=== PATIENT | male | born 1955 | race Caucasian/White ===

== ENCOUNTER 2021-11-16 18:31 | Emergency (ER) | payer MEDICARE, SELFPAY ==
[2021-11-16 18:46] VITALS: BP 181/118; PULSE 80; RESP 18; TEMP 36.8; O2SAT 96; BMI 27.3
--- NOTE | 2021-11-16 18:50 | ED_ITS ---
HPI - Head Injury General: Chief complaint: Head Injury Stated complaint: Hit head after brain surgery yesterday Time Seen by Provider: 11/16/21 18:50 History of Present Illness: A 66-year-old male patient comes in today for concern of a fall and injury to the right head. Patient had recently had a cranial procedure to remove a piece of hardware from a previous procedure due to a traumatic brain injury. Today patient had bent down to help with some groceries when he lost his balance causing him to fall into the door jam of a car. The spouse noted some mild swelling to the right facial cheek which is the site of the head in which the procedure was performed. Patient denied any loss of consciousness or significant change in pain. Patient is alert and oriented. Associated symptoms: Deny nausea or vomiting Review of Systems General: Reports: 10 or more systems reviewed and unremarkable except in HPI and below Const: Denies: fever(s) Card: Denies: chest pain Resp: Denies: dyspnea GI: Denies: nausea or vomiting Skin/Breast: Denies: erythema Neuro: Denies: headache(s) Physical Exam Const: COMMON NORMALS: no acute distress HENMT: COMMON NORMALS: TM's normal bilaterally and Normal external nose present HEAD & SCALP: other (Healing postsurgical wounds, stable dressing) FACE & SINUS: Facial tenderness on exam of face and sinuses (Mild right facial cheek tenderness with minimal swelling, no crepitus) NOSE: Normal external nose present TYMPANIC MEMBRANE: TM's normal bilaterally MOUTH: Normal oral and palatal mucosa present THROAT: posterior oropharynx normal Neck/C-Spine: COMMON NORMALS: full ROM Resp: COMMON NORMALS: normal respiratory effort and clear to auscultation bilaterally AUSCULTATION: clear to auscultation bilaterally Cardio: COMMON NORMALS: regular rate and regular rhythm RATE: regular rate RHYTHM: regular rhythm Extremity: COMMON NORMALS: normal to inspection Skin: WOUNDS: Yes surgical site (Right scalp, healing well) Course Vital Signs: Vital signs: Vital Signs Temperature 98.2 F 11/16/21 18:46 Pulse Rate 65 11/16/21 19:43 Respiratory Rate 15 11/16/21 19:43 Blood Pressure 178/113 11/16/21 19:43 Pulse Oximetry 97 11/16/21 19:43 MDM - Head Injury Medcial Decision Making 66-year-old male patient had a recent cranial procedure for removal of hardware from a previous traumatic brain injury. Today patient was helping carrying groceries when he bent down to get a bag and lost his balance causing him to fall into the door jam of the car. Patient had some mild swelling to the right facial cheek without any signs of abrasion or ecchymosis. Neurologic exam indicated no focal deficits. Patient was alert and oriented. Vital signs did note some elevation in blood pressure although patient states that when he is in the hospital his blood pressure does run high and he was worried about his fall. Differential diagnosis includes intracranial bleeding, fracture, contusion. CT of the head indicated no acute injury. Reviewed exam with patient and family member for recommendations for monitoring and follow-up. They reported understanding agreed to plan. Lab Data Radiology Impressions Head CT 11/16/21 18:54 IMPRESSION: 1. No acute intracranial abnormality. 2. Sequela of recent craniotomy with expected pneumocephalus anterior to the right frontal lobe. Focal encephalomalacia noted at the right parietal, occipital, and temporal lobes. Discharge Plan Discharge Patient Disposition: Home Clinical Impression: Closed head injury Qualifiers: Encounter type: initial encounter Qualified Code(s): S09.90XA - Unspecified injury of head, initial encounter Condition: Stable Prescriptions: No Action hydrocodone-acetaminophen 5-325 mg tablet 1 tab PO Q4H 0RF tamsulosin 0.4 mg capsule 0.4 mg PO DAILY 0RF dutasteride 0.5 mg capsule 0.5 mg PO DAILY 0RF Discharge Orders: Discharge ED (Routine); Ordered 11/16/21 Ordered By: Varghese Bocanegra Discharge Diet: Usual diet Discharge Activity: Increase activity as tolerated Patient Instructions: Head Injury (ED), Opioid Safety Activity Restrictions/Additional Instructions: Continue with routine care. Follow-up with primary care as needed. Follow-up with surgeon for further instructions. Return to ER for worsening symptoms or new concerns. Coding Level of Care Code ED Medicare Biller for Clary Portillo Exam Detailed
--- NOTE | 2021-11-16 18:54 | CTR_ITS ---
PROCEDURE INFORMATION: Exam: CT Head Without Contrast Exam date and time: 11/16/2021 7:20 PM Age: 66 years old Clinical indication: Injury or trauma; Other: Hit head on car door while getting groceries; Blunt trauma (contusions or hematomas); Other: Swelling of recent surgery site; Prior surgery; Surgery date: Post-operative (0-2 days); Surgery type: Cranial procedure to remove a piece of hardware. Previous procedure due to a traumatic brain injury. ; Additional info: Hit head, recent cranial procedure TECHNIQUE: Imaging protocol: Computed tomography of the head without contrast. Radiation optimization: All CT scans at this facility use at least one of these dose optimization techniques: automated exposure control; mA and/or kV adjustment per patient size (includes targeted exams where dose is matched to clinical indication); or iterative reconstruction. COMPARISON: No relevant prior studies available. RADIATION DOSE METRICS: Total DLP (mGy-cm): 867.33 FINDINGS: Brain: No hemorrhage. Pneumocephalus anterior to the right frontal lobe. Focal encephalomalacia at the right parietal, occipital, and temporal lobes. Cerebral ventricles: No ventriculomegaly. Ex vacuo dilation of the right atria and temporal horn of the right lateral ventricle. Paranasal sinuses: Opacified right maxillary and left frontal sinuses. Mastoid air cells: Visualized mastoid air cells are well aerated. Bones/joints: Right frontal parietal temporal craniotomy changes noted. No acute fracture. Soft tissues: Unremarkable. CT/CT head wo con* [id number] IMPRESSION: 1. No acute intracranial abnormality. 2. Sequela of recent craniotomy with expected pneumocephalus anterior to the right frontal lobe. Focal encephalomalacia noted at the right parietal, occipital, and temporal lobes.
[2021-11-16 19:43] VITALS: BP 178/113; PULSE 65; RESP 15; O2SAT 97
[2021-11-16 20:00] VITALS: BP 171/109; PULSE 68; RESP 17; O2SAT 99
== END 2021-11-16 20:02 | disposition home or self-care (01) ==
PROVIDERS: Emergency Provider Nurse Practitioner Family
DX: S09.90XA Unspecified injury of head, initial encounter (principal); W01.0XXA Fall on same level from slipping, tripping and stumbling without subsequent striking against object, initial encounter
CPT/HCPCS: 70450; 99282

== ENCOUNTER 2023-01-14 15:50 | Emergency (ER) | payer MEDICARE, SELFPAY ==
[2023-01-14 15:53] VITALS: BP 171/98; PULSE 62; RESP 15; TEMP 36.7; O2SAT 100; BMI 27.3
--- NOTE | 2023-01-14 16:15 | PC.NURSE ---
Pt on bedside monitoring and evaluation advisor
--- NOTE | 2023-01-14 16:16 | ED_ITS ---
HPI - Chest Pain General: Chief Complaint: Chest Pain Stated Complaint: CHEST PAIN Time Seen by Provider: 01/14/23 15:58 History of Present Illness: 68-year-old male presents emergency room via EMS with chest pain while cutting grass. Patient describes pain as sharp sensation and heaviness with severity of 7 out of 10 prior to coming to emergency room. Patient further reviews that she has had this pain off and on for the past few months. Upon present emergency room patient denies any chest pain at this time and demanding for immediate stress test. Associated symptoms: Deny dyspnea, palpitations or syncope Review of Systems General: Reports: 10 or more systems reviewed and unremarkable except in HPI and below Card: Reports: chest pain; Denies: palpitations, irregular heart rhythm, edema, swelling of feet/ankles, lightheadedness, syncope or pre-syncope Resp: Denies: dyspnea, productive cough, non-productive cough, wheezing, pain on inspiration, change in phlegm color or chest congestion Neuro: Denies: headache(s), numbness in extremities or weakness in extremities Physical Exam Const: COMMON NORMALS: no acute distress, average body habitus, patient orien matthew x3, no limitations, healthy appearing, alert and well nourished Neck/C-Spine: COMMON NORMALS: full ROM, no lymphadenopathy, supple, no meninge al signs, no JVD, Thyroid normal and No carotid bruits THYROID: Thyroid normal Chest: COMMONS NORMALS: normal inspection of the chest, normal palpation of entire chest wall, normal inspection of the breasts and normal palpation of the breasts Breast/axilla inspection: Yes normal inspection of the breasts BREAST/AXILLA PALPATION: Yes normal palpation of the breasts Resp: COMMON NORMALS: normal respiratory effort, No retractions, No use of accessory muscles, clear to auscultation bilaterally and percussion normal AUSCULTATION: clear to auscultation bilaterally PERCUSSION: percussion normal Cardio: COMMON NORMALS: no JVD, regular rate, regular rhythm, S1 normal heart sound present, S2 normal heart sound present, No gallops present (Cardio), No clicks present (Cardio), No murmurs present (Cardio), No rub (Cardio) and Peripheral pulses 2+ throughout RATE: regular rate RHYTHM: regular rhythm HEART SOUNDS: S1 normal heart sound present and S2 normal heart sound present PERIPHERAL PULSES: Peripheral pulses 2+ throughout GI: COMMON NORMALS: Normal to inspection, nondistended, normoactive bowel sounds present, Soft to palpation, non-tender, No hepatosplenomegaly present, no masses and no bruits PALPATION: Yes Soft to palpation and Yes No hepatosplenomegaly present Extremity: COMMON NORMALS: normal to inspection, full ROM, capillary refill normal, no joint enlargement, no clubbing, cyanosis or edema, no calf tenderness and no pedal edema Neuro: COMMON NORMALS: patient oriented x3 SENSORIUM/ORIENTATION: Yes alert MENINGEAL SIGNS: Yes no meningeal signs Course ED course: Labs were ordered EKG was done and patient declined further testing and leave AGAINST MEDICAL ADVICE. The risk of leaving against medical was thoroughly discussed. Vital Signs: Vital signs: Vital Signs Temperature 98.1 F 01/14/23 15:53 Pulse Rate 62 01/14/23 15:53 Respiratory Rate 15 01/14/23 15:53 Blood Pressure 171/98 01/14/23 15:53 Pulse Oximetry 100 01/14/23 15:53 Oxygen Delivery Me thod Room Air 01/14/23 15:53 MDM - Chest Pain Medical Decision Making EKG reviewed and discussed with patient Medical Records I reviewed the patient's medical records. Lab Data I reviewed the patient's lab results. EKG Data EKG 1: Interpretation: Sinus bradycardia with rate of 59no ST changes MD interval 146 QTc [address] elevation or ST depression Discharge Plan Discharge Patient Disposition: Left Against Medical Advice Clinical Impression: Chest pain Condition: Stable Prescriptions: No Action hydrocodone-acetaminophen 5-325 mg tablet 1 tab PO Q4H tamsulosin 0.4 mg capsule 0.4 mg PO DAILY dutasteride 0.5 mg capsule 0.5 mg PO DAILY Discharge Diet: Advance as tolerated Coding Level of Care Code ED Scientific Software Engineer for Clary Portillo
--- NOTE | 2023-01-14 16:25 | PC.NURSE ---
Pt refusing blood draw, states he is feeling better and wants to go home. Dr Ramírez in to talk with pt about risks of leaving, pt verbalized understanding. Pt states he will call and get a stress test set up but does not want to stay for other testing today. AMA paper signed by pt after physician talked to him about the risks of leaving and benefits of additional testing.
--- NOTE | 2023-01-14 16:28 | ECG_ITS ---
[facility] Test Date: 2023-01-14 Pat Name: Hammad Contreras Department: Room: Gender: Male Construction Safety Manager: : 1955 Requested By: Robinson Burns Order Number: [id number] Christianne MD: Viktor Morales M.D. Measurements Intervals [place] Rate: 58 P: 24 UT: 146 QRS: 18 QRSD: 102 T: 76 QT: 407 QTc: 400 Interpretive Statements SINUS BRADYCARDIA NONSPECIFIC T-WAVE ABNORMALITY No previous ECG available for comparison Electronically Signed On 01-16-2023 8:00:59 CDT by Viktor Morales M.D. [id number]
--- NOTE | 2023-02-02 15:02 | DCPLANNER ---
late entry - patient called due to no primary care physician - no answer at this time.
== END 2023-01-14 16:39 | disposition left against medical advice (07) ==
PROVIDERS: Emergency Provider Family Medicine
DX: R07.9 Chest pain, unspecified (principal); Z53.21 Procedure and treatment not carried out due to patient leaving prior to being seen by health care provider
CPT/HCPCS: 93005; 99283

== ENCOUNTER 2023-01-14 17:22 | Emergency (ER) | payer MEDICARE, SELFPAY ==
[2023-01-14 17:34] VITALS: BP 159/99; PULSE 68; RESP 14; TEMP 36.7; O2SAT 99; BMI 27.3
--- NOTE | 2023-02-02 15:06 | DCPLANNER ---
late entry - patient called due to no primary care physician - no answer at this time.
== END 2023-01-14 18:17 | disposition left against medical advice (07) ==
PROVIDERS: Emergency Provider Family Medicine
DX: Z53.21 Procedure and treatment not carried out due to patient leaving prior to being seen by health care provider (principal)

== ENCOUNTER 2023-02-07 11:43 | Outpatient (CLI) | payer MEDICARE, SELFPAY ==
[2023-02-07 12:18] VITALS: BMI 27.3
--- NOTE | 2023-02-07 12:23 | ECG_ITS ---
[facility] Test Date: 2023-02-07 Pat Name: Hammad Contreras Department: Room: Gender: Male Analytics Analyst: : 1955 Requested By: Oskar Vaca Order Number: [id number] Faust MD: Zulay Dominguez M.D. Interpretive Statements NAME OF STUDY: TREADMILL STRESS TEST INDICATION: Chest Pain Baseline blood pressure of 148/85 mm Hg, heart rate 85 beats per minute and oxygen saturation of 95%. EKG showed sinus rhythm, normal axis with normal ST-Ts. ??? The patient exercised for 3 minutes and 51 seconds on a [standard Campbell protocol]. Patient attained a maximum heart rate of 124 beats per minute( 80 % of the maximum predicted heart rate) with a blood pressure at the peak exercise of 185/101 mm Hg and oxygen saturation of 91%. The EKG at the peak exercise revealed sinus tachycardia with 2 mm horizontal to upsloping ST depression in infero-lateral leads. Patient had chest pain and SOB at peak exercise that resolved in recovery. No significant arrhythmis with the exercise. During the recovery phase, there were no new changes. ??? Blood pressure at the end of the recovery phase was 156/92 mm Hg with a heart rate of 81 beats per minute and oxygen saturation of 97%. ??? CONCLUSION: 1. Positive EKG response to treadmill exercise with submaximal stress. Patient developed 2 mm horizontal to upsloping ST depression in infero-lateral leads at 80% MPHR at peak exercise. 2. No exercise-induced chest pain or cardiac arrhythmia. 3. Decreased exercise tolerance, attained a maximum of 7 METs. 4. Baseline hypertension with normal response to exercise. Electronically Signed On 02-11-2023 9:15:33 CDT by Zulay Dominguez M.D. [id number]
[2023-02-07 12:57] VITALS: BP 154/69; PULSE 82
== END 2023-02-07 11:44 | disposition home or self-care (01) ==
PROVIDERS: PCP Electrodiagnostic Medicine; Visit Provider Electrodiagnostic Medicine
DX: R07.9 Chest pain, unspecified (principal); I10 Essential (primary) hypertension
CPT/HCPCS: 93017

== ENCOUNTER → 2023-02-22 14:37 | Outpatient (BNVA) | payer MEDICARE, SELFPAY | PROVIDERS: PCP Electrodiagnostic Medicine; Visit Provider Internal Medicine | DX: R07.9 Chest pain, unspecified (principal); R94.39 Abnormal result of other cardiovascular function study | CPT/HCPCS: 93005; 99204 ==

== ENCOUNTER 2023-03-02 15:25 | Outpatient (CLI) | payer MEDICARE, SELFPAY ==
[2023-03-02 16:11] LABS: Basophils # 0.1 10^3/uL (0.0-0.1); Basophils % 0.8 %; Eosinophils # 0.6 10^3/uL (0.0-0.8); Eosinophils % 5.5 %; Hematocrit 42.8 % (42.0-52.0); Hemoglobin 14.3 g/dL (11.7-16.6); Lymphocytes # 2.5 10^3/uL (0.8-4.8); Lymphocytes % 22.7 %; Mean Corpuscular HGB Conc 33.4 g/dL (30.0-36.0); Mean Corpuscular Volume 95.7 fl (80-94); Mean Platelet Volume 9.3 fL (7.4-10.4); Monocytes % 8.7 %; Neutrophils # 6.73 10^3/uL (1.8-7.7); Neutrophils % 61.7 %; Nucleated Red Blood Cells % 0 %; Platelet Count 356 10^3/cmm (130-400); Red Blood Count 4.47 10^6/uL (4.1-5.3); Red Cell Distribution Width 12.5 % (12.1-15.1); White Blood Count 10.9 10^3/uL (4.0-10.0)
[2023-03-02 16:24] LABS: INR 0.96 (0.83-1.21); Prothrombin Time (Patient) 13.1 Seconds (12.0-15.1)
[2023-03-02 17:02] LABS: Blood Urea Nitrogen 13 mg/dL (8-23); Carbon Dioxide 20 mmol/L (22-29); Chloride 102 mmol/L (98-107); Glomerular Filtration Rate 74.8 mL/min (90-130); Glucose 108 mg/dL (65-115); Osmolality Calculated 287 mOsm/kg (285-295); Sodium 138 mmol/L (136-145)
== END 2023-03-02 15:26 | disposition home or self-care (01) ==
PROVIDERS: PCP Electrodiagnostic Medicine; Visit Provider Internal Medicine
DX: R07.9 Chest pain, unspecified (principal)
CPT/HCPCS: 36415; 80048; 85025; 85610

== ENCOUNTER 2023-03-09 05:56 | Outpatient (CLI) | payer MEDICARE, SELFPAY ==
[2023-03-09 06:00] VITALS: BP 168/100; PULSE 80; RESP 16; TEMP 36.7; O2SAT 96; BMI 27.3
--- NOTE | 2023-03-09 06:00 | XACV_ITS ---
Exam Room: 2 Ht: 173 cm Wt: 82 kg BSA: 2.00 m2 Gender: Male : 1955 Any Known Allergies: No known allergies Exam Priority: Routine Procedure(s): Procedure Description: Diagnostic procedure Procedure Description: Left Heart Catheterization Procedure Description: Left ventriculography Procedure Description: Coronary Angiography Diagnostic Cath Status: Elective Diagnostic Findings * INDICATION: Worsening angina/ abnormal stress test. * Left Anterior Descending has no disease. * Circumflex has no disease. * Left Main: critical 95% stenosis, CARLIN: 3 flow. * Mid Right Coronary Artery: moderate 50% stenosis, CARLIN: 3 flow. * Coronary angiography shows right dominance. Conclusions 1. Critical distal left main artery stenosis.. 2. Normal left ventricular systolic function. Ejection fraction of 50%. Recommendations * Referral to CT surgery team for CABG evaluation. * Continue aspirin and statin therapy. * Outpatient cardiology follow up in 7-10 days. Interventional RX Recommendation: CABG Diagnostic RX Recommendation: CABG Ventriculography Ejection Fraction: 50.0 % Pressures Phase:Rest AO : 163 / 96 ( 121 ) @ 8:52:00 AM 167 / 80 ( 114 ) @ 9:02:00 AM 167 / 80 ( 114 ) @ 9:02:00 AM LV : 170 / -9 / 13 @ 9:01:00 AM 171 / -8 / 17 @ 9:02:00 AM 170 / -8 / 16 @ 9:02:00 AM Valves Phase:DefaultPhase AV : 3.0 @ 8:17:47 AM 3.0 @ 8:17:47 AM AV Mean Gradient: 7.0 @ 8:17:47 AM 7.0 @ 8:17:47 AM Clinical Evaluation EBL: 5mL-10mL Procedural Details Procedure Consent Obtained. Admit Source: Out Patient. Pre-Procedure Time Out. Identified patient by full name and date of as verbalized by the patient/guarantor. Does the consent match the physician's order: Yes. Accurate & Complete Informed Consent: Yes. Inpatient/Outpatient History & Physical on Chart: Yes. If H&P is completed, is and addenduem needed: No; If yes, is the addendum complete: N/A. Visualize and Verify Site with Patient/Guarantor: N/A. Relevant Radiology Images available: Yes. The risks, benefits, and alternatives of sedation and/or procedure were discussed by physician. The patient agrees to continue. Procedure started. [facility] Clinical Fraility Score: 3: Managing Well. Inside Sales Administrator Indications: Worsening Angina. Chest Pain Symptom Assessment: Typical Angina Symptoms. Correct patient, site and procedure confirmed by cath team. Current diagnosis: Chest Pain, Abnormal stress test. PERRLA. Strong, equal hand wet washer machine bilaterally. Lungs clear x 5 lobes. IV Site on Arrival: 20 gauge in the right anticubital. IV Fluids: 0.9% NaCl at 75ml/hr. 0 mL infused prior to wastewater analyst lab analyst. Pre Procedural Pulses: bilateral radial was 2+. Pre Procedural Pulses: bilateral posterior tibial was Doppled. Pre Procedural Pulses: bilateral dorsalis pedis was Doppled. Oxygen started at 2liters/min via nasal canula. right radial was prepped with chloroprep then draped in the usual sterile fashion. right groin was prepped with chloroprep then draped in the usual sterile fashion. Physician notified. Baseline sample Acquired. HR: 71 BPM. Physician arrived. Physician scrubbed in. Immediate Pre-Procedure Time Out. Correct Patient: Yes; Correct Procedure: Yes; Correct Site: Yes; Correct Patient Position: Yes; Correct Supplies: No; Dried Flammable Prep: Yes; Blood Products Available: No;. Lidocaine 1% infiltrated to the right radial. An attempt to gain access to the right radial artery was unsuccessful. Manual pressure was held as needed to stop the bleeding. Arterial access obtained. Access needle and wire out. Holding manual pressure. Lidocaine 1% infiltrated to the right groin. Arterial access obtained with micropuncture set. Low stick, needle and wire out. Holding manual pressure. Arterial access obtained with micropuncture set. A 5 togolese JL4 catheter in over exchange wire. Marcia Tracee, RN was relieved by Carl Gomez RN, [facility] as monitoring person. Multiple views taken of left coronary artery. Catheter removed over the exchange wire. A 5 togolese JR4 catheter in over wire. Multiple views taken of right coronary artery. Catheter removed over the exchange wire. A 5 togolese Angled Pig catheter in over wire. EDP Sample taken: LV 170/-10,13; HR: 71 BPM; SpO2: 100%. LV gram performed in [place] @ 10 mL/second for a total of 30 mL. Patient EF: Normal. EDP Sample taken: LV 171/-9,17; HR: 74 BPM; SpO2: 99%. Pullback taken: LV 170/-9,16; AO 167/80(114); Mean: 7mmHg, Peak to Peak: 3mmHg, SEP: 19sec/min; HR: 73 BPM; SpO2: 100%. Catheter removed over the exchange wire. Physician review of films then scrubbed out. A Suture was successful obtaining hemostatsis at the Right Femoral artery insertion site. Sheath(s) sutured into position with 2-0 silk and sterile 4x4's and Op-site applied over the site. No oozing or signs and symptoms of hematoma noted. Arterial sheath flushed and connected to tranducer and pressure bag with heparinized saline. Family updated by . Post Procedure: Pulses reassessed and unchanged. PERRLA. Strong, equal hand wet washer machine bilaterally. No VTE prophylaxis required. MEDICATION WASTE: Lidocaine- 2 ml. Nitro 49.8 mg. Heparin- 4000 units. Fentanyl- 50 mcg. Post-op diagnosis: Severe distal left main stenosis. Complications: None. Estimated blood loss: 5mL-10mL. Responsiveness - Normal response to verbal stimuli; alert and oriented, PERRLA. Airway - Unaffected, no intervention required; spontaneous ventilation. Circulation: W/N/L, pulses unchanged. Nausea/Vomiting: No. Procedure completed. Patient transferred by bed to CPRU. Vital chart was stopped. Total IV fluids: 32 mL. Fluoro: 3:06. Contrast type used: Omnipaque 300 mg/mL, 150 mL bottle. [id number]. Access Site Site: Right Femoral artery Sheath Size: 6 Fr Hemostasis Method: Suture Hemostasis Success: Successful Procedure Medications Start: 7:35 AM Stop: 7:35 AM Medication: Versed Amount: 1 mg Route: I.V. Start: 7:36 AM Stop: 7:36 AM Medication: Fentanyl Amount: 50 mcg Route: I.V. Start: 7:43 AM Stop: 7:43 AM Medication: Nitrogylcerin Amount: 200 mcg Route: I.A. Start: 7:43 AM Stop: 7:43 AM Medication: Versed Amount: 1 mg Route: I.V. I, the attending physician, have reviewed and verified all procedure medications. Yes, all medications given per verbal order History/Risk Factors Hypertension: No Dyslipidemia: No Peripheral Arterial Disease (PAD): No Myocardial Infarction (SD): No Obesity: No Renal Disease: No Tobacco Use: Former Prior Interventions PCI: No CABG: No Valve Surgery: No Report Signatures Finalized by Viktor Morales MD on 03/13/2023 05:44 PM
[2023-03-09] MEDS: aspirin 325 mg Tablet PO (06:45)
[2023-03-09] MEDS: diphenhydrAMINE 50 mg Capsule PO (06:45)
--- NOTE | 2023-03-09 07:33 | P.HPUD_ITS ---
Surgery/Procedure H&P Update DATE OF PROCEDURE: March 09, 2023 DATE H&P PERFORMED: 02/22/23 H&P UPDATE INFORMATION: I have reviewed H&P completed within last 30 days, I have examined patient prior to procedure and No changes to prior documentation PREOP DIAGNOSIS: Worsening angina/ abnormal stress test PRIMARY INDICATION FOR PROCEDURE: Worsening angina/ abnormal stress test PLANNED PROCEDURE: Operation Date: 03/09/23 07:00 Proposed Procedures p [facility] 80019,R94.39(Left) - Viktor Morales M.D Possible percutaneous coronary intervention PATIENT REASSESSED PRIOR TO SEDATION, WITH NO CHANGE NOTED: Yes PHYSICAL EXAM: alert, oriented x 3, clear to auscultation bilaterally and regular rate & rhythm AIRWAY EVAL/ANESTHESIA PLAN: normal airway, ASA III, Local Anesthesia, Risks, benefits & alternatives of sedation and/or procedure discussed and Patient agrees to continue as planned ADDITIONAL INFORMATION: Moderate sedation
[2023-03-09 08:15] VITALS: BP 159/98; PULSE 68; RESP 16; O2SAT 96
--- NOTE | 2023-03-09 08:15 | PC.NURSE ---
around 815 cpru nurse received pt from laboratory mechanical technician post diagnostic [facility]. pt alert and oriented x3. pt complains of no pain. right wrist with tr band with distal pulse palpable. no bruising or hematoma. Right femoral site connected to pressure bag. no bruising or hematoma noted. pt educated on restrictions of right wrist and right leg. pt stated understanding. pt to be educated throughout recovery. plan to recover in cpru for 30 mins and then transferred to c[facility].
[2023-03-09 08:30] VITALS: BP 157/89; PULSE 66; RESP 17; O2SAT 96
[2023-03-09 08:45] VITALS: BP 129/80; PULSE 66; RESP 18; O2SAT 96
[2023-03-09 08:59] VITALS: BP 129/80; PULSE 69; RESP 18; O2SAT 96
--- NOTE | 2023-03-09 10:49 | PC.NURSE ---
Patient arrived via bed. Sheath and pressure bag in place. TR band in place. No hematoma or bleeding. Nurse will continue to monitor.
--- NOTE | 2023-03-09 10:50 | PC.NURSE ---
Sheath pulled uneventfully. Dressing in place, no drainage noted. Nurse will monitor.
[2023-03-09 11:12] VITALS: BP 141/87; PULSE 70; RESP 20; TEMP 36.9; O2SAT 96
--- NOTE | 2023-03-09 13:41 | PC.NURSE ---
TR band removed, no hematoma or bleeding. Dressing applied. Nurse will continue to monitor
--- NOTE | 2023-03-09 16:17 | PC.NURSE ---
Discharge Note Patient discharged to home via POV accompanied by family. Discharge instructions reviewed with patient and/or electroplating sales representative. Mobile pharmacy medications and/or prescriptions provided. Belongings/home medications returned.
== END 2023-03-09 16:48 | disposition home or self-care (01) ==
LOC: CCL 06:02 → CSU 09:48
PROVIDERS: PCP Electrodiagnostic Medicine; Visit Provider Internal Medicine
DX: R94.39 Abnormal result of other cardiovascular function study (principal); Z87.891 Personal history of nicotine dependence; I20.9 Angina pectoris, unspecified
CPT/HCPCS: 36415; 93458; 96361; 96365; 99152; 99153; C1769; C1887; C1894; J1644; J2250; J3010; J3490; J7030; Q0163; Q9967

== ENCOUNTER 2023-03-23 06:26 | Outpatient (CLI) | payer MEDICARE, MEDICAID, SELFPAY ==
--- NOTE | 2023-03-23 | USCV_ITS ---
Hammad Contreras Age: 68 Gender: M : 1955 Exam Date: 03/23/2023 06:46 Ordering Phys: Luis Antonio Chang MD Technologist: SHANNEN Exam Location: [facility] – [place] Indication: UNSTABLE ANGINA, CAD BP: 140 / 90 HR: 78 Rhythm: Sinus Technical Quality: Adequate MEASUREMENTS (Male / Female) Normal Values 2D ECHO LVOT Diameter 2.0 cm LV Ejection Fraction MOD 2C 49.6 % LV Ejection Fraction 2C AL 50.6 % LA Diameter 2.8 cm LA Width 3.2 cm LA Height 3.5 cm RA Width 2.6 cm RA Height 3.8 cm Aorta at Sinotubular Diameter 2.9 cm IVC Diameter 1.4 cm M-MODE Aortic Annulus Diameter 3.4 cm LA Ao Ratio MM 0.8 MV E Point Septal Separation 0.4 cm DOPPLER AV Peak Velocity 112.0 cm/s LVOT Peak Velocity 123.0 cm/s AV Area Cont Eq vti 3.5 cm squared AV Area Cont Eq pk 3.4 cm squared MV Peak Velocity 83.0 cm/s MV Area PHT 3.1 cm squared Mitral E to A Ratio 0.7 MV E' Velocity 38.0 cm/s Mitral E to MV E' Ratio 10.3 Mitral E to LV E' Lateral Ratio 9.4 Mitral E to LV E' Septal Ratio 11.3 TR Peak Velocity 239.2 cm/s TR Peak Gradient 22.9 mmHg TR Mean Velocity 191.5 cm/s TR Mean Gradient 15.3 mmHg TR Velocity Time Integral 59.1 cm TV Peak E Velocity 58.0 cm/s Right Atrial Pressure 3.0 mmHg Pulmonary Artery Systolic Pressu 25.9 mmHg PV Peak Velocity 101.0 cm/s RV Acceleration Time 0.1 s RV Ejection Time 0.3 s RV AcT/ET 0.3 FINDINGS Left Ventricle Left ventricle is normal in size. LV systolic function is normal with EF of 50 to 55%. No regional wall motion abnormalities are seen. Grade 1 diastolic dysfunction Right Ventricle Normal in size and function Right Atrium Normal in size Left Atrium Normal in size Mitral Valve Structurally normal mitral valve. Mild mitral regurgitation. Aortic Valve Structurally normal aortic valve. No significant stenosis or regurgitation. Tricuspid Valve Mild tricuspid regurgitation. Pulmonary artery systolic pressure is normal. Pulmonic Valve Not well visualized. Mild pulmonic regurgitation. Pericardium Normal Aorta Normal in size IVC Appears to be normal CONCLUSIONS LV systolic function is normal with EF of 50 to 55%. Grade 1 diastolic dysfunction. Mild mitral regurgitation. Mild tricuspid regurgitation Mild pulmonic regurgitation. No comparison studies are available Viktor Morales MD (Electronically Signed) Final Date: 23 March 2023 08:37 S
== END 2023-03-23 06:27 | disposition home or self-care (01) ==
LOC: RAD 06:27
PROVIDERS: PCP Electrodiagnostic Medicine; Visit Provider Thoracic Surgery (Cardiothoracic Vascular Surgery)
DX: I25.110 Atherosclerotic heart disease of native coronary artery with unstable angina pectoris (principal); I34.0 Nonrheumatic mitral (valve) insufficiency; I07.1 Rheumatic tricuspid insufficiency; I37.1 Nonrheumatic pulmonary valve insufficiency
CPT/HCPCS: 93306